=== PATIENT | male | born 1980 ===

== ENCOUNTER 2017-04-14 10:12 | Emergency (ER) | payer SELFPAY ==
[2017-04-14 10:16] VITALS: BMI 28.3
[2017-04-14 10:17] VITALS: BP 109/71; PULSE 74; RESP 17; TEMP 97.8; O2SAT 97
--- NOTE | 2017-04-14 10:39 | ED PDOC ---
HPI: General Adult Time Seen by Provider: 04/14/17 10:36 Chief Complaint (Nursing): Hip Pain Chief Complaint (Provider): hip pain History Per: Patient Additional Complaint(s): 37-year-old male presents to emergency department complaining of left hip pain ongoing for 1 year. Patient states the pain started last year when he lifted a heavy object and injured his hip. Patient has not been evaluated for this pain up to this point. He states that when he does take Advil the pain does subside. Today when he woke up and the pain was much worse prompting ED visit. Past Medical History Reviewed: Historical Data, Nursing Documentation, Vital Signs Vital Signs: Last Vital Signs Temp 97.8 F 04/14/17 10:16 Pulse 74 04/14/17 10:16 Resp 17 04/14/17 10:16 BP 109/71 04/14/17 10:16 Pulse Ox 97 04/14/17 11:07 - Medical History PMH: No Chronic Diseases - Surgical History Surgical History: Appendectomy - Family History Family History: States: No Known Family Hx - Living Arrangements Living Arrangements: With Family - Social History Current smoker - smoking cessation education provided: No Alcohol: None Drugs: Denies - Home Medications Home Medications: Ambulatory Orders Medication Instructions Recorded Naproxen 500 mg PO BID PRN #30 tab 08/05/16 Cyclobenzaprine [Cyclobenzaprine 10 mg PO TID PRN #20 tab 04/14/17 HCl] Naproxen [Naprosyn] 500 mg PO BID #20 tab 04/14/17 - Allergies Allergies/Adverse Reactions: Allergies Allergy/AdvReac Type Severity Reaction Status Date / Time No Known Allergies Allergy Verified 04/14/17 10:23 Review of Systems ROS Statement: Except As Marked, All Systems Reviewed And Found Negative Musculoskeletal: Positive for: Other (left hip pain for 1 year) Physical Exam - Reviewed Nursing Documentation Reviewed: Yes Vital Signs Reviewed: Yes - Physical Exam Appears: Positive for: Well, Non-toxic, No Acute Distress Skin: Negative for: Rash Eye Exam: Positive for: Normal appearance Cardiovascular/Chest: Positive for: Regular Rate, Rhythm Respiratory: Positive for: Normal Breath Sounds Extremity: Positive for: Other (moderate tenderness left lateral hip, full rom with pain) Neurologic/Psych: Positive for: Alert, Oriented, Gait (antalgic due to hip pain) - ECG O2 Sat by Pulse Oximetry: 97 Pulse Ox Interpretation: Normal - Other Rad Left hip and pelvis x-ray X-Ray: Interpreted by Me, Viewed By Me X-Ray Interpretation: no fx, no dis, NAP Medical Decision Making Medical Decision Makin37 year old with left hip pain for 1 year Plan: IM toradol PO tylenol and flexeril X-ray left hip and pelvis Patient aware of x-ray results. He states he feels better after meds given in ED. Prescriptions given for Naprosyn and Flexeril. Patient was referred to clinic for follow-up and was also provided with ortho account liaison for follow-up. Disposition - Clinical Impression Clinical Impression: Hip pain - Patient ED Disposition Is Patient to be Admitted: No Counseled Patient/Family Regarding: Studies Performed, Diagnosis, Need For Followup, Rx Given - Disposition Referrals: Augustina Bravo MD [Staff Provider] - [facility] [Outside] Disposition: Routine/Home Disposition Time: 11:31 Condition: STABLE Additional Instructions: Take prescription meds as directed as needed for pain. Rest affected area as much as possible. Follow up with clinic or orthopedist for further evaluation. Prescriptions: Cyclobenzaprine [Cyclobenzaprine HCl] 10 mg PO TID PRN #20 tab PRN Reason: Muscle Spasm Naproxen [Naprosyn] 500 mg PO BID #20 tab Instructions: Hip Pain (ED) Forms: [employer] (Danish), [facility] ED School/Work Excuse Print Language: BAHAMIAN
--- NOTE | 2017-04-14 11:54 | RAD ---
PROCEDURE: Left Hip X-ray Radiographs. HISTORY: left hip pain for 1 year COMPARISON: None. FINDINGS: BONES: Bone alignment and mineralization are normal. There is no acute displaced fracture or bone destruction. JOINTS: Normal. SOFT TISSUES: Normal. OTHER FINDINGS: None. IMPRESSION: Normal examination.
== END 2017-04-14 12:06 | disposition home or self-care (01) ==
LOC: H.ER 10:12
DX: M25.552 Pain in left hip (principal)
CPT/HCPCS: 73502; 96372; 99283; J1885